=== PATIENT | male | born 1945 | race Caucasian/White ===

== ENCOUNTER 2018-04-13 08:14 | Day surgery (SDC) | payer MEDICARE, OTHER ==
[2018-04-09 09:57] VITALS: BMI 36.8
[~2018-04-13 08:14] MED LIST: LACTATED RINGERS 1,000 ML IV SCH
[2018-04-13] MEDS ORDERED: LIDOCAINE 1% 20 ML VIAL (10MG/ML) FOR IV START INTRADERMA ONE (09:34)
[2018-04-13] MEDS ORDERED: LACTATED RINGERS 1,000 ML IV ONE (09:35)
[2018-04-13 09:54] VITALS: RESP 16; TEMP 97.9
[2018-04-13] MEDS ORDERED: PROPOFOL 10 MG/ML 20 ML VIAL IV ONE (10:18)
--- NOTE | 2018-04-13 10:49 | P.PCN ---
Date of Procedure: 04/13/18 Procedure(s) Performed: Procedure: Total colonoscopy. Preoperative diagnosis: Screening for neoplasia. Postoperative diagnosis: Mild diverticulosis with no evidence of acute diverticulitis, strictures, polyps or cancer. Preparation: HalfLytely prep. Sedation: Was provided by anesthesia. Brief clinical history: The patient is a 72-year-old male who is scheduled for this evaluation for screening for neoplasia. He has history of polyps and his last exam was around 5 years ago. The patient has no abdominal complaints, bleeding or anemia. Procedure: With the patient on his left lateral decubitus position and after informed consent and adequate sedation, the perianal area was inspected and it did not show any fissures or fistulas. There were no masses felt on digital rectal examination. The Olympus CFH 190L video colonoscope was then inserted in the rectum in the usual fashion and advanced to the cecum. There were few small diverticular orifices seen scattered in the sigmoid and a rare orifice on the right side with no evidence of acute diverticulitis or strictures. No polyps or tumors were seen. The mucosa appeared healthy. I retroflexed the endoscope in the rectum before the endoscope was withdrawn. The patient tolerated the procedure well. Plan: The patient was reassured. Discussed dietary measures. I recommended repeat exam in 5 years because of history of polyps. He will follow up with you as planned.
[2018-04-13 10:58] VITALS: BP 143/67; PULSE 60
== END 2018-04-13 11:21 ==
LOC: ORWHC2ENDO 08:14
DX: Z12.11 Encounter for screening for malignant neoplasm of colon (principal); K57.30 Diverticulosis of large intestine without perforation or abscess without bleeding; Z86.010 Personal history of colon polyps; I10 Essential (primary) hypertension; F41.9 Anxiety disorder, unspecified; Z88.1 Allergy status to other antibiotic agents; Z79.899 Other long term (current) drug therapy
CPT/HCPCS: J2704; G0105; 45378

== ENCOUNTER → 2024-03-10 | Outpatient (CLI) | payer OTHER ==
--- NOTE | 2024-03-10 09:37 | US ---
EXAMINATION TYPE: US arterial UE single level DATE OF EXAM: 03/10/2024 9:29 AM CLINICAL INDICATION: Male, 78 years old with history of Bilateral Upper Extremity Z01.31 BLOOD PRESSU RE W; High BP TECHNIQUE: Systolic pressures were taken of the upper extremity arteries with wrist brachial indices calculated. History of: Smoker: Prev 40 years ago Hypertension: yes Diabetic: No Hyperlipidemia: No TIA/CVA: No Previous Vascular Surgery: No CAD: No SC: No Vascular Ulcers: No Claudication: No Gangrene: No FINDINGS: Doppler Waveforms: Right: Axillary: Multiphasic Brachial: Multiphasic Radial: Multiphasic Ulnar: Multiphasic Left: Axillary: Multiphasic Brachial: Multiphasic Radial: Multiphasic Ulnar: Multiphasic Right: Brachial: 170 Radial artery: 155 Ulnar Artery: 156 Left: Brachial: 168 Radial artery: 169 Ulnar Artery: 160 Wrist Brachial Indices: Right: 0.92 Left: 0.99 IMPRESSION: Wrist brachial indices within normal limits. [facility], , 03/10/2024 9:35 AM
== END | disposition home or self-care (01) ==
LOC: RADUSWWP 08:38
PROVIDERS: ATTEND Family Medicine
DX: Z01.31 Encounter for examination of blood pressure with abnormal findings (principal); I10 Essential (primary) hypertension; Z87.891 Personal history of nicotine dependence
CPT/HCPCS: 93922